=== PATIENT | male | born 1940 | race Caucasian/White ===

== ENCOUNTER → 2021-01-31 14:57 | Outpatient (BNVA) | payer MEDICARE, SELFPAY | PROVIDERS: PCP Nurse Practitioner Family; Referring Provider Nurse Practitioner Family; Visit Provider Orthopaedic Surgery | DX: M65.342 Trigger finger, left ring finger (principal); M18.12 Unilateral primary osteoarthritis of first carpometacarpal joint, left hand; M25.532 Pain in left wrist | CPT/HCPCS: 73110; 73130 ==

== ENCOUNTER 2021-03-23 13:14 | Emergency (ER) | payer MEDICARE, SELFPAY ==
[2021-03-23 14:08] VITALS: BP 130/74; PULSE 85; RESP 18; TEMP 37.2; O2SAT 96; BMI 42.4
[2021-03-23 17:14] VITALS: BP 142/85; PULSE 80; RESP 15; O2SAT 97
--- NOTE | 2021-03-23 17:14 | PC.NURSE ---
PT ARRIVED TO ROOM.
[2021-03-23 17:47] LABS: Basophils % 0.3 %; Eosinophils # 0.1 10^3/uL (0.0-0.8); Eosinophils % 0.6 %; Hematocrit 41.3 % (42.0-52.0); Hemoglobin 13.5 g/dL (11.7-16.6); Mean Corpuscular HGB Conc 32.7 g/dL (30.0-36.0); Mean Corpuscular Volume 88.6 fL (80-94); Monocytes # 1.2 10^3/uL (0.2-0.9); Monocytes % 8.1 %; Neutrophils # 10.84 10^3/uL (1.8-7.7); Neutrophils % 76.2 %; Nucleated Red Blood Cells % 0 %; Platelet Count 277 10^3/cmm (130-400); Red Blood Count 4.66 10^6/uL (4.1-5.3); Red Cell Distribution Width 14.2 % (12.1-15.1); White Blood Count 14.2 10^3/uL (4.0-10.0)
[2021-03-23 18:02] LABS: Add Urine Microscopic? YES; Bilirubin Urine Neg (Negative); Blood Urine 2+ (Negative); Glucose Urine UA 4+ (Normal); Ketones Urine Negative (Negative); Leukocyte Esterase Urine 2+ (Negative); Nitrate Urine Negative (Negative); Protein Urine Neg (Negative); Specific Gravity, Urine 1.015 (1.005-1.030); Urine Appearance SL Hazy (CLEAR); Urine Color Yellow (Yellow); Urobilinogen Urine Norm (Negative); pH Urine 5 (5-7)
[2021-03-23 18:03] LABS: Add Urine Culture? No; Bacteria Urine 2+ /hpf; Squamous Epithelial Cell Urine 25-40 /hpf (0-5); WBC Urine 15-25 /hpf (0-5)
[2021-03-23 18:22] LABS: Alanine Aminotransferase 7 U/L (0-41); Alkaline Phosphatase 111 IU/L (40-130); Anion Gap 17.1 (5-19); Aspartate Amino Transferase 9 U/L (0-40); Blood Urea Nitrogen 27 mg/dL (8-23); Calcium 9.1 mg/dL (8.5-10.5); Carbon Dioxide 26 mmol/L (22-29); Chloride 93 mmol/L (98-107); Glucose 188 mg/dL (65-115); Lipase 89 U/L (13-60); Osmolality Calculated 284 mOsm/kg (285-295); Potassium 4.1 mmol/L (3.5-5.1); Sodium 132 mmol/L (136-145); Total Bilirubin 0.3 mg/dL (0.15-1.2)
--- NOTE | 2021-03-23 18:34 | CTR_ITS ---
PROCEDURE INFORMATION: Exam: CT Abdomen And Pelvis With Contrast Exam date and time: 03/23/2021 6:34 PM Age: 80 years old Clinical indication: Abdominal pain; Generalized; Additional info: Abd pain TECHNIQUE: Imaging protocol: Computed tomography of the abdomen and pelvis with contrast. Total images: 261 Radiation optimization: All CT scans at this facility use at least one of these dose optimization techniques: automated exposure control; mA and/or kV adjustment per patient size (includes targeted exams where dose is matched to clinical indication); or iterative reconstruction. Contrast material: OMNI 300; Contrast volume: 95 ml; Contrast route: INTRAVENOUS (IV); COMPARISON: No relevant prior studies available. RADIATION DOSE METRICS: Total DLP (mGy-cm): 1733.63 FINDINGS: Lungs: Limited assessment of the lung bases fails to reveal evidence for active cardiopulmonary process. Heart: Cardiomegaly. Liver: No visible hepatic mass or cystic structure. Hepatomegaly. Gallbladder and bile ducts: Unremarkable. No calcified stones. No ductal dilation. Pancreas: Pancreas is unremarkable. No visible pancreatic ductal ectasia. Spleen: Spleen unremarkable. Adrenal glands: Small right adrenal myelolipoma measuring 24 mm in diameter. No follow-up recommended. Left adrenal gland unremarkable. Kidneys and ureters: No hydronephrosis or perinephric fluid. No visible nephrolithiasis or ureterolithiasis bilaterally. Stomach and bowel: Duodenitis with a suspected 2nd portion duodenal ulcer. No evidence for perforated ulcer at time of evaluation. No visible extraluminal gas. Diffuse mucosal thickening of the 1st, 2nd, and 3rd portions of the duodenum. Nonobstructive bowel pattern. No evidence for associated significant adynamic or reactive ileus. No visible evidence for significant diverticulosis coli or findings of acute diverticulitis. Appendix: The appendix is visualized and appears noninflamed. Intraperitoneal space: No visible pneumoperitoneum or intraperitoneal ascites. Vasculature: Portal vein patent. The abdominal aorta is nonaneurysmal. Moderate arterial sclerotic disease. Lymph nodes: No current visible evidence of active mesenteric or retroperitoneal lymphadenopathy. Urinary bladder: Urinary bladder unremarkable. Reproductive: Prostate hypertrophy. Bones/joints: No visible active or acute osseous pathology. Degenerative disease and degenerative disc disease of the spine not inconsistent with the patient's chronological age. Facet arthrosis. Soft tissues: Bilateral small inguinal hernias containing fat only. Small periumbilical ventral hernia containing fat only. Other findings: Obesity. CT/CT abdomen pelvis w con* [id number] IMPRESSION: 1. Duodenitis with a suspected 2nd portion duodenal ulcer. No evidence for perforated ulcer at time of evaluation. No visible extraluminal gas. Diffuse mucosal thickening of the 1st, 2nd, and 3rd portions of the duodenum. 2. Small right adrenal myelolipoma. No follow-up recommended. 3. Hepatomegaly. 4. Other nonurgent, nonemergent, chronic, and age related findings as detailed in text above. Radiation Dose CTDIVOL = (mGy): DLP = 1733.63 (mGy-cm)
[2021-03-23] MEDS: iohexol 300 mg/mL 100 mL Btl IV (19:14)
--- NOTE | 2021-03-23 21:21 | ED_ITS ---
HPI - Abdominal Pain General: Chief Complaint: Abdominal Pain Stated Complaint: abd pain and pressure Time Seen by Provider: 03/23/21 17:07 History of Present Illness: HPI narrative: The patient is a 80-year-old male with past medical history diabetes and hypertension who comes to the ER complaining of epigastric abdominal plain since Saturday. He says he has been taking Pepto-Bismol at home which has made his stools dark-colored and made him constipated as well. Associated Symptoms: Reports constipation; Denies diarrhea, nausea and vomiting Review of Systems General: Reports: 10 or more systems reviewed and unremarkable except in HPI and below Const: Denies: fatigue Eyes: Denies: change in vision, blurry vision or eye redness ENMT: Denies: throat pain, swelling of lips/tongue, ear or mastoid pain or nasal congestion Card: Denies: chest pain, palpitations, irregular heart rhythm, edema, dyspnea on exertion or orthopnea Resp: Denies: dyspnea, productive cough or non-productive cough GI: Reports: abdominal pain and constipation; Denies: nausea, vomiting or diarrhea : Denies: flank pain, urinary frequency or urinary urgency Musc: Denies: neck pain, back pain, extremity pain, joint pain, joint redness, limited range of motion or muscle weakness Skin/Breast: Denies: rash, pruritus, erythema, skin pain or skin tenderness Neuro: Denies: headache(s), numbness in extremities, weakness in extremities, sensory changes, difficulty walking, dizziness, confusion or Slurred speech present Psych: Denies: anxiety or depression Endo: Denies: polyuria All/Imm: Denies: urticaria, throat swelling or tongue swelling PFS ED PFSH: Social History Smoking and tobacco status: never smoked Alcohol intake: never Physical Exam Const: COMMON NORMALS: no acute distress, average body habitus, patient orient ed x3, no limitations, healthy appearing, alert and well nourished GENERAL APPEARANCE: cooperative, comfortable, well kempt and well developed ORIENTATION/CONSCIOUSNESS: Yes awake, Yes oriented to person, Yes oriented to place and Yes oriented to time HENMT: COMMON NORMALS: normocephalic, external ears normal and Normal external nose present HEAD & SCALP: normal to inspection and normocephalic NOSE: Normal external nose present EXTERNAL EAR: Yes external ears normal MOUTH: Normal oral and palatal mucosa present THROAT: posterior oropharynx normal Eye: COMMON NORMALS: Equal, round and reactive pupils present and EOMs intact bilaterally GENERAL EYE: appearance normal, both eyes and all related structures PUPIL: Yes Equal, round and reactive pupils present Neck/C-Spine: COMMON NORMALS: full ROM, no lymphadenopathy, no meningeal signs and no JVD GENERAL: Yes normal visual inspection Lymph: LYMPHATIC: no lymphadenopathy noted Chest: COMMONS NORMALS: normal inspection of the chest and normal palpation of entire chest wall Resp: COMMON NORMALS: normal respiratory effort, No retractions, No use of accessory muscles, clear to auscultation bilaterally and percussion normal EFFORT & INSPECTION: Yes able to speak in complete sentences AUSCULTATION: clear to auscultation bilaterally PERCUSSION: percussion normal Cardio: COMMON NORMALS: no JVD, regular rate, regular rhythm, S1 normal heart sound present, S2 normal heart sound present and Peripheral pulses 2+ throughout RATE: regular rate RHYTHM: regular rhythm HEART SOUNDS: S1 normal heart sound present and S2 normal heart sound present PERIPHERAL PULSES: Peripheral pulses 2+ throughout GI: COMMON NORMALS: Normal to inspection, nondistended, normoactive bowel sounds present, Soft to palpation and no masses INSPECTION: Yes normal to inspection PALPATION: Yes Soft to palpation GI image (male): 1. mild epigastric tenderness. : COMMON NORMALS: Yes no CVA tenderness BLADDER/KIDNEY EXAM: Yes no CVA tenderness Back/Pelvis: COMMON NORMALS: no CVA tenderness, thoracic and lumbar spine normal to inspection, no thoracic nor lumbar tenderness and thoraco-lumbar ROM normal Extremity: COMMON NORMALS: normal to inspection, full ROM, capillary refill normal, no joint enlargement and no pedal edema GENERAL: Yes normal exam except as noted Neuro: COMMON NORMALS: patient oriented x3, CN's II-XII intact bilaterally, moves all extremities, no focal motor deficits, no sensory deficits noted and gait normal SENSORIUM/ORIENTATION: Yes alert, Yes oriented to person, Yes oriented to place and Yes oriented to time MENINGEAL SIGNS: Yes no meningeal signs Psych: COMMON NORMALS: mental status grossly normal, Normal thought process present, cooperative, normal affect and speech normal APPEARANCE: Yes well ke mpt ATTITUDE: Yes calm SPEECH: Yes normal speech THOUGHT PROCESS: Mendy l thought process present Skin: COMMON NORMALS: no rashes or lesions noted GENERAL SKIN EXAM: no rashes or lesions noted Course Vital Signs: Vital signs: Vital Signs Temperature 98.9 F 03/23/21 14:08 Pulse Rate 90 03/23/21 22:03 Respiratory Rate 16 03/23/21 22:03 Blood Pressure 149/80 03/23/21 22:03 Pulse Oximetry 96 03/23/21 22:03 MDM - Abdominal Pain MDM Narrative: Medical decision making narrative: Patient came in complaining of mild epigastric pain and he has been eating spicy food approximately 5 days ago and has continued pain. He has been taking Pepto-Bismol at home with no significant improvement but it has turned his stools dark. CT shows duodenitis with likely ulceration. He was started on Protonix and given a GI cocktail with some improvement of his symptoms here in the ED. Discussed with Dr. Flores recommended following up with him in the outpatient clinic. Discharged him with Protonix and Carafate. Called him by phone after he was discharged as he possibly has a UTI as well and called in ciprofloxacin to the [facility] 500 mg p.o. twice daily for 7 days. He will return to the ER with worsening symptoms as I coached him in great detail about the possibility of perforation and to return with worsening symptoms. Lab Data: Labs: Lab Results 03/23/21 03/23/21 03/23/21 Range/Units 17:35 17:35 17:38 WBC 14.2 H (4.0-10.0) 10^3/ uL RBC 4.66 (4.1-5.3) 10^6/u L Hgb 13.5 (11.7-16.6) g/dL Hct 41.3 L (42.0-52.0) % MCV 88.6 (80-94) fL MCH 29.0 (28.0-34.0) pg MCHC 32.7 (30.0-36.0) g/dL RDW 14.2 (12.1-15.1) % Plt Count 277 (130-400) 10^3/c mm MPV 10.0 (7.4-10.4) fL Neut % (Auto) 76.2 % Lymph % (Auto) 14.0 % Liberty % (Auto) 8.1 % Eos % (Auto) 0.6 % Baso % (Auto) 0.3 % Neut # (Auto) 10.84 H (1.8-7.7) 10^3/u L Lymph # (Auto) 2.0 (0.8-4.8) 10^3/u L Liberty # (Auto) 1.2 H (0.2-0.9) 10^3/u L Eos # (Auto) 0.1 (0.0-0.8) 10^3/u L Baso # (Auto) 0.0 (0.0-0.1) 10^3/u L Nucleated RBC % (a uto) 0 % Nucleated RBCs # 0.0 /100WBC Sodium 132 L (136-145) mmol/L Potassium 4.1 (3.5-5.1) mmol/L Chloride 93 L (98-107) mmol/L Carbon Dioxide 26 (22-29) mmol/L Anion Gap 17.1 (5-19) BUN 27 H (8-23) mg/dL Creatinine 0.9 (0.7-1.2) mg/dL GFR Calculation Not Reportable Glucose 188 H (65-115) mg/dL Calculated Osmolal ity 284 L (285-295) mOsm/k g Calcium 9.1 (8.5-10.5) mg/dL Total Bilirubin 0.3 (0.15-1.2) mg/dL AST 9 (0-40) U/L ALT 7 (0-41) U/L Alkaline Phosphata se 111 (40-130) IU/L Total Protein 7.0 (6.6-8.7) g/dL Albumin 4.0 (3.5-5.2) g/dL Globulin 3.0 (1.3-4.6) g/dL Lipase 89 H (13-60) U/L Urine Color Yellow (Yellow) Urine Appearance Sl hazy (CLEAR) Urine pH 5 (5-7) Ur Specific Gravit y 1.015 (1.005-1.030) Urine Protein Neg (Negative) Urine Glucose (UA) 4+ H (Normal) Urine Ketones Negative (Negative) Urine Blood 2+ H (Negative) Urine Nitrate Negative (Negative) Urine Bilirubin Neg (Negative) Urine Urobilinogen Norm (Negative) mg/dL Ur Leukocyte Krista ase 2+ H (Negative) Urine RBC 5-10 H (0-2) /hpf Urine WBC 15-25 H (0-5) /hpf Ur Squamous Epith Cells 25-40 H (0-5) /hpf Amorphous Sediment Not Reportable Urine Bacteria 2+ H (NONE) /hpf Discharge Plan Discharge Patient Disposition: Home Clinical Impression: Duodenal ulcer Condition: Stable Prescriptions: New Protonix 40 mg tablet,delayed release (DR/EC) 40 mg PO BID 30 Days Qty: 60 RF: 0 Carafate 1 gram tablet 1 g PO Q6H 28 Days Qty: 112 RF: 0 No Action meloxicam [Mobic] 15 mg tablet 15 mg PO DAILY RF: 0 (DME) lancets [Accu-Chek Softclix Lancets] Misc See Rx Instructions .ROUTE RF: 0 omega-3 fatty acids [Fish Oil Concentrate] 1,000 mg capsule 1,000 mg PO DAILY RF: 0 simvastatin 20 mg tablet 20 mg PO DAILY RF: 0 amlodipine 5 mg tablet 5 mg PO DAILY RF: 0 metformin 1,000 mg tablet 1,000 mg PO BID RF: 0 gabapentin 600 mg tablet 600 mg PO BID RF: 0 lisinopril 20 mg tablet 20 mg PO DAILY RF: 0 Tylenol 325 mg Tablet 325 - 650 mg PO Q4H PRN (Reason: Pain) RF: 0 Pepto-Bismol 262 mg/15 mL Suspension See Rx Instructions .ROUTE .COMPLEX RF: 0 Allergy 25 mg Tablet 25 mg PO DAILY RF: 0 Discharge Orders: Discharge ED (Routine); Ordered 03/23/21 Ordered By: Mustapha Narvaez Referrals: Zoila Early [Primary Care Provider] - Discharge Diet: Advance as tolerated Discharge Activity: Resume usual activity Patient Instructions: Peptic Ulcer (ED), Opioid Safety Activity Restrictions/Additional Instructions: You have inflammation in the first part of your intestine called the duodenum and likely an ulcer there. Please avoid NSAIDs, caffeine, spicy food, smoking as these increase stomach acid. Please take the omeprazole and Carafate to help reduce the acid in your stomach and let it heal itself. I have discussed with Dr. Flores her general surgeon here who is willing to see you in his clinic and possibly do a scope depending on her symptoms at that time. Please take those medications and return to the ER with any worsening symptoms as there is a small possibility of a perforation which would make you septic and your symptoms worsen. Return to the ER at anytime with those symptoms. I have placed a case management referral to help you get an appointment with a general surgeon Dr. Flores and they should be calling you either tomorrow or Saturday to help set up this appointment. Coding Level of Care Code ED Financial Institution President for Vale Chung Exam Comprehensive
[2021-03-23] MEDS: lidocaine 2% viscous 15 ML, aluminum-mag hydrox-simethicon 30 ML, sucralfate oral liq 1 GM PO (21:22)
[2021-03-23] MEDS: pantoprazole 40 mg SDV IVP (21:22)
[2021-03-23 22:03] VITALS: BP 149/80; PULSE 90; RESP 16; O2SAT 96
--- NOTE | 2021-03-24 09:18 | DCPLANNER ---
Addendum entered by Joslyn Kennedy 03/28/21 14:40: manager of application development was contacted and told that when clinic called patient to schedule the follow up appointment that patient stated that he has already contacted his primary care physician. Original Note: manager of application development had message to schedule a follow up appointment for patient with general surgery. manager of application development emailed patients information to both Herlinda and Brittney at [facility] General Surgery. Patients information will be printed and reviewed. Clinic will call patient with appointment information.
== END 2021-03-23 22:04 | disposition home or self-care (01) ==
PROVIDERS: Family Medicine; Emergency Provider Family Medicine; PCP Nurse Practitioner Family
DX: K26.9 Duodenal ulcer, unspecified as acute or chronic, without hemorrhage or perforation (principal); Z79.84 Long term (current) use of oral hypoglycemic drugs
CPT/HCPCS: 74177; 80053; 81001; 83690; 85025; 96374; 99283; C9113; Q9967

== ENCOUNTER → 2023-10-29 13:15 | Outpatient (BNVA) | payer MEDICARE, MEDICAID, SELFPAY | PROVIDERS: PCP Nurse Practitioner Family; Visit Provider Nurse Practitioner Family | DX: E11.621 Type 2 diabetes mellitus with foot ulcer (principal); L97.509 Non-pressure chronic ulcer of other part of unspecified foot with unspecified severity | CPT/HCPCS: 87070; 87176; 87205 ==

== ENCOUNTER → 2023-11-12 15:00 | Outpatient (BNVA) | payer MEDICARE, MEDICAID, SELFPAY | PROVIDERS: PCP Nurse Practitioner Family; Visit Provider Nurse Practitioner Family | DX: E11.621 Type 2 diabetes mellitus with foot ulcer (principal); L97.509 Non-pressure chronic ulcer of other part of unspecified foot with unspecified severity | CPT/HCPCS: 87070; 87077; 87176; 87186; 87205 ==

== ENCOUNTER → 2023-11-25 14:32 | Outpatient (BNVA) | payer MEDICARE, SELFPAY | PROVIDERS: PCP Nurse Practitioner Family; Visit Provider Podiatrist Foot & Ankle Surgery | DX: E11.621 Type 2 diabetes mellitus with foot ulcer (principal); L97.522 Non-pressure chronic ulcer of other part of left foot with fat layer exposed; M86.672 Other chronic osteomyelitis, left ankle and foot; E11.40 Type 2 diabetes mellitus with diabetic neuropathy, unspecified; E11.10 Type 2 diabetes mellitus with ketoacidosis without coma; Z79.4 Long term (current) use of insulin | CPT/HCPCS: 73630; 99204 ==

== ENCOUNTER 2023-12-04 06:38 | Day surgery (SDC) | payer MEDICARE, MEDICAID, SELFPAY ==
[2023-12-04] VITALS (8 sets, daily range): BP systolic 99–120; BP diastolic 51–74; PULSE 54–69; RESP 14–17; TEMP 36.2–36.7; O2SAT 93–99; BMI 36.2
[2023-12-04] MEDS: acetaminophen 1,000 MG/100 ML PIGGYBACK 400 MG IV (07:08)
[2023-12-04] MEDS: sodium chloride 0.9% 1,000 ML 30 ML IV (07:08)
--- NOTE | 2023-12-04 07:10 | ANES.PREANE2 ---
Pre-Anesthetic Assessment Height/Weight: Height 1.65 m Preop Diagnosis: Osteomyelitis Operation Date: 12/04/23 08:15 Proposed Procedures p Amputation Toe/s/ Left hallux amputation(Left) - Lasha Gaytan DPM s Ray Resection/ possible partial first ray resection left foot(Left) - Lasha Gaytan DPM Familial anesthetic complications: None Was Beta Sindhu taken within 24 hours: N/A Was Clonidine taken within 24 hours: N/A Last intake: > 8hrs Social No alcohol and No tobacco Exam alert, oriented x 3, clear to auscultation bilaterally and regular rate & rhythm Airway Mallampati: Class IV Dentition: chipped Comments: Comments: Full cisse CV/HEM Hypertension GI Gastroesophageal Reflux Disease Metabolic Diabetes Mellitus and Hyperlipidemia Anesthetic Plan ASA status: 4 Anesthesia: MAC Risk of > 500 ml blood loss (7ml/kg in children): No Medications/Allergies Home Medications Medication Instructions Recorded Confirmed Last Taken Type amlodipine 5 mg tablet 5 mg PO DAILY 01/31/21 12/04/23 12/04/23 History gabapentin 600 mg tablet 900 mg PO BID 01/31/21 12/03/23 12/03/23 History lancets (Accu-Chek Softclix 01/31/21 12/03/23 Unknown History Lancets) simvastatin 20 mg tablet 20 mg PO DAILY 01/31/21 12/03/23 12/03/23 History acetaminophen 325 mg tablet 325 - 650 mg PO Q4H PRN Pain 03/23/21 12/03/23 03/23/21 History (Tylenol) cholecalciferol (vitamin D3) 1,250 1,250 mcg PO DAILY 10/29/23 12/03/23 12/03/23 History mcg (50,000 unit) capsule insulin glargine 100 unit/mL (3 100 unit SUBCUT DAILY 10/29/23 12/03/23 12/03/23 History mL) subcutaneous pen (Lantus Solostar U-100 Insulin) mirtazapine 30 mg tablet 30 mg PO DAILY 10/29/23 12/03/23 12/03/23 History nystatin 100,000 unit/gram topical 1 applic topical BID 10/29/23 12/03/23 Unknown History powder pantoprazole 40 mg tablet,delayed 40 mg PO DAILY 10/29/23 12/03/23 12/03/23 History release sitagliptin phosphate 100 mg 100 mg PO DAILY 10/29/23 12/03/23 12/03/23 History tablet (Januvia) tramadol 50 mg tablet 50 mg PO Q8H PRN Pain 10/29/23 12/03/23 12/03/23 History triamcinolone acetonide 0.1 % applic topical 10/29/23 12/03/23 Unknown History topical cream Allergies Allergy/AdvReac Type Severity Reaction Status Date / Time aspirin Allergy ADR-Gastrointestinal Verified 12/04/23 06:50 Upset pregabalin [From Lyrica] Allergy ALGY-Bliste Verified 12/03/23 15:00 r Current Medications Generic Name Dose Route Start Last Admin Trade Name Freq PRN Reason Stop Dose Admin Sodium Chloride 1,000 mls @ 30 mls/hr 12/04/23 06:45 12/04/23 07:08 Sodium Chloride 0.9% IV 12/05/23 06:44 30 mls/hr .Q24H KIERSTEN Administration PFSH Anesthesia Medical History (Updated 11/30/23 @ 20:34 by Lasha Gaytan DPM) Diabetic acidosis, type II Pyelonephritis Hyperlipidemia 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
[2023-12-04 07:45] LABS: Glucose Point of Care 106 mg/dL (70-110)
--- NOTE | 2023-12-04 07:46 | ECG_ITS ---
[facility] Test Date: 2023-12-04 Pat Name: Lázaro Polo Department: Room: Gender: Male Web Marketing Analyst: : 1940 Requested By: Samantha Ray Order Number: [id number] Monica MD: Glen Love M.D. Measurements Intervals Tiff Rate: 61 P: 41 GA: 202 QRS: -58 QRSD: 149 T: 3 QT: 440 QTc: 446 Interpretive Statements SINUS RHYTHM WITH OCCASIONAL SUPRAVENTRICULAR PREMATURE COMPLEXES RIGHT BUNDLE BRANCH BLOCK [120+ ms QRS DURATION, UPRIGHT V1, 40+ ms S IN I/aVL/V4/V5/V6] LEFT ANTERIOR FASCICULAR BLOCK [QRS AXIS <= -45, QR IN I, RS IN II] Compared to ECG 08/23/2016 10:54:37 Right bundle-branch block now present Myocardial infarct finding no longer present Electronically Signed On 12-04-2023 16:59:31 CDT by Glen Love M.D. [id number]
[2023-12-04 07:48] LABS: Anion Gap 14.3 (5-19); Blood Urea Nitrogen 11 mg/dL (8-23); Calcium 9.2 mg/dL (8.5-10.5); Carbon Dioxide 27 mmol/L (22-29); Chloride 103 mmol/L (98-107); Creatinine Clr Calc Pharmacy 78.3114; Glucose 107 mg/dL (65-115); Osmolality Calculated 290 mOsm/kg (285-295); Potassium 4.3 mmol/L (3.5-5.1); Sodium 140 mmol/L (136-145)
--- NOTE | 2023-12-04 07:56 | W.PM.OPSUD ---
Surgery/Procedure H&P Update DATE OF PROCEDURE: December 04, 2023 DATE H&P PERFORMED: 11/25/23 H&P UPDATE INFORMATION: I have reviewed H&P completed within last 30 days, I have examined patient prior to procedure, No changes to prior documentation and H&P is in [facility] EMR on date indicated PREOP DIAGNOSIS: Osteomyelitis PLANNED PROCEDURE: Operation Date: 12/04/23 08:15 Proposed Procedures p Amputation Toe/s/ Left hallux amputation(Left) - Lasha Gaytan DPM s Ray Resection/ possible partial first ray resection left foot(Left) - Lasha Gaytan DPM
[2023-12-04] MEDS: ceFAZolin 2,000 MG in sodium chloride 0.9% (plus) 50 ML 100 MG IV (08:01)
[2023-12-04] MEDS: BUPivacaine 0.5% INJ 30 mL XX (08:15)
--- NOTE | 2023-12-04 08:38 | P.BOP_ITS ---
Date of procedure: 12/04/2023 Surgeon name: Dr. Lasha Gaytan D.P.M. Candy Department Manager(s) name(s): Guilherme Procedure(s) performed: Left foot hallux amputation Description of findings: Osteomyelitis left hallux Estimated blood loss: 5 cc Tourniquet time: 15 minutes Specimen(s) removed: Left hallux Post-operative diagnosis: Osteomyelitis left hallux
--- NOTE | 2023-12-04 08:40 | PM.OP ---
Operative Report Date of procedure: December 04, 2023 Pre-op diagnosis: Osteomyelitis left hallux Post-op diagnosis: Same Post-op findings: Osteomyelitis of left proximal phalanx Procedure done: Left hallux amputation CPT 18819 Pathology: Left hallux as surgical specimen Surgeon: Lasha Gaytan DPM Hydraulic Lift Driver: Guilherme Estimated blood loss: 5 cc 15 minutes Complications: None Findings: See above Procedure: Patient is a 83-year-old male that has a history of left hallux osteomyelitis with chronic ulceration. The patient has had the aforementioned chief complaint for some time. Conservative treatment measures have been attempted and the patient has opted for surgical intervention at this time. A lengthy discussion regarding the procedure, including risks and complications has been had with the patient and is noted in the recent clinic note. Written and verbal consent have been obtained. All patient questions have been answered to the patient?s satisfaction. No written or verbal guarantees have been given or implied. The patient has been NPO since midnight. The history has been reviewed and the history and physical is current. The signed consent was confirmed and placed in the patient chart. Patient imaging has been reviewed and is consistent with the diagnosis. Under mild sedation, the patient was brought into the operating room and placed on the table in the supine position. IV antibiotics were given by the anesthesia team as preoperative surgical prophylaxis. IV sedation was then performed by the anesthesiateam. A local field block was then performed using 0.5% Marcaine plain. A pneumatic tourniquet was then placed about the left ankle. The operative extremity was then prepped and draped in the usual fashion. The extremity was then elevated before the tourniquet was inflated to 250 mmHg. After inflation, the following procedure was then performed. Attention was directed to the left hallux where a racquet style incision was made circumferentially about the hallux with care to preserve as much soft tissue as possible. Dissection was carried full-thickness down to level of bone. Dissection was carried out to the level of the first metatarsophalangeal joint. The collateral ligaments and attachments of the first metatarsal phalangeal joint capsule were excised. A penetrating towel clamp was then used to grasp the end of the hallux to joystick the hallux for amputation. All connections of the first metatarsophalangeal joint were released using a #15 blade. The hallux was then passed from the operative field be sent as specimen. The remaining tissues appeared healthy and viable in nature. The metatarsal head appeared healthy without any degenerative changes. The flexor and extensor tendons were then grasped and pulled distally before being incised as proximally as possible using a #15 blade. All remaining tissue appeared healthy. The site was then irrigated with copious amounts of sterile saline via cystoscopy tubing. The amputation site was then closed using 3-0 Prolene in simple interrupted, horizontal mattress and retention type fashion. The tourniquet was let down and good hyperemic response was noted to all remaining digits of the operative extremity. The incision site was then dressed with Xeroform, 4 x 4 gauze, Kerlix, Coban. The patient tolerated the procedure and anesthesia well and without complication. The patient was transported from the operating room to the recovery room with vital signs stable and vascular status intact to all remaining digits of the left foot. The patient was given both written and verbal instructions to remain weightbearing as tolerated in postop shoe to the operative extremity, to keep dressings/splint clean, dry and intact and to take pain medication as directed. The patient will follow-up in the outpatient setting at their scheduled appointment. The patient was discharged with my personal number and was instructed to call if any questions or issues should arise. They were discharged home once anesthesia criteria was met.
--- NOTE | 2023-12-04 09:40 | ANE.PACU2 ---
Inpatient post-anesthesia follow up: Airway intact: Yes Vital signs: Temperature 97.9 F Pulse Rate 54 Respiratory Rate 16 Blood Pressure 108/53 Pulse Oximetry 94 Oxygen Delivery Me thod Room Air Oxygen Flow Rate 6 Fraction of Inspir ed Oxygen Hydration adequate: Yes Nausea and vomiting: No Pain level: 1 Mental status: Baseline
== END 2023-12-04 09:40 | disposition home or self-care (01) ==
PROVIDERS: Anesthesiology; Family Provider Family Medicine; PCP Nurse Practitioner Family; Visit Provider Podiatrist Foot & Ankle Surgery
PROC: (CPT 28820; principal; 2023-12-04 07:55)
PROC: (CPT 28810; 2023-12-04 07:55)
DX: M86.8X7 Other osteomyelitis, ankle and foot (principal); I10 Essential (primary) hypertension; K21.9 Gastro-esophageal reflux disease without esophagitis; E78.5 Hyperlipidemia, unspecified; Z79.4 Long term (current) use of insulin; E11.69 Type 2 diabetes mellitus with other specified complication; E66.9 Obesity, unspecified; Z68.36 Body mass index [BMI] 36.0-36.9, adult
CPT/HCPCS: 28820; 36416; 80048; 82962; 88305; 88311; 93005; J0131; J0690; J2704; J3010; J3490; J7030

== ENCOUNTER → 2023-12-11 12:34 | Outpatient (BNVA) | payer MEDICARE, MEDICAID, SELFPAY | PROVIDERS: Family Provider Family Medicine; PCP Nurse Practitioner Family; Visit Provider Podiatrist Foot & Ankle Surgery | DX: M86.8X7 Other osteomyelitis, ankle and foot (principal); Z89.412 Acquired absence of left great toe; E11.40 Type 2 diabetes mellitus with diabetic neuropathy, unspecified; E11.10 Type 2 diabetes mellitus with ketoacidosis without coma; Z79.4 Long term (current) use of insulin | CPT/HCPCS: 99213; A6219; A6222 ==

== ENCOUNTER → 2023-12-18 13:42 | Outpatient (BNVA) | payer MEDICARE, MEDICAID, SELFPAY | PROVIDERS: Family Provider Family Medicine; PCP Nurse Practitioner Family; Visit Provider Podiatrist Foot & Ankle Surgery | DX: Z98.890 Other specified postprocedural states (principal); E11.40 Type 2 diabetes mellitus with diabetic neuropathy, unspecified; E11.10 Type 2 diabetes mellitus with ketoacidosis without coma; M86.8X7 Other osteomyelitis, ankle and foot; Z79.4 Long term (current) use of insulin; Z89.412 Acquired absence of left great toe | CPT/HCPCS: 99213 ==

== ENCOUNTER → 2024-03-05 09:15 | Outpatient (BNVA) | payer MEDICARE, MEDICAID, SELFPAY | PROVIDERS: Family Provider Family Medicine; PCP Nurse Practitioner Family; Visit Provider Podiatrist Foot & Ankle Surgery | DX: Z98.890 Other specified postprocedural states (principal); E11.621 Type 2 diabetes mellitus with foot ulcer; M86.9 Osteomyelitis, unspecified; E11.40 Type 2 diabetes mellitus with diabetic neuropathy, unspecified; E11.10 Type 2 diabetes mellitus with ketoacidosis without coma; L97.522 Non-pressure chronic ulcer of other part of left foot with fat layer exposed; Z89.412 Acquired absence of left great toe; Z79.4 Long term (current) use of insulin | CPT/HCPCS: 11720; 99213 ==

== ENCOUNTER 2024-05-29 15:40 | Outpatient (CLI) | payer MEDICARE, MEDICAID, SELFPAY ==
[2024-05-29 16:46] LABS: Bilirubin Urine Neg (Negative); Blood Urine 2+ (Negative); Glucose Urine UA 2+ (Normal); Ketones Urine Negative (Negative); Nitrate Urine Negative (Negative); Protein Urine 1+ (Negative); Urine Appearance Cloudy (CLEAR); Urine Color Yellow (Yellow); Urobilinogen Urine 4 mg/dL (Negative); pH Urine 7 (5-7)
[2024-05-29 16:47] LABS: Add Urine Microscopic? YES; Leukocyte Esterase Urine 2+ (Negative)
[2024-05-29 16:48] LABS: Bacteria Urine 4+ /hpf; Mucus Urine TRACE /hpf; Squamous Epithelial Cell Urine 0-4 /hpf (0-5); WBC Urine 80-100 /hpf (0-5)
[2024-05-29 16:49] LABS: Add Urine Culture? Yes
== END 2024-05-29 15:41 | disposition home or self-care (01) ==
LOC: LAB 15:42
PROVIDERS: Family Provider Family Medicine; PCP Nurse Practitioner Family; Visit Provider Family Medicine
DX: Z87.440 Personal history of urinary (tract) infections (principal); Z46.6 Encounter for fitting and adjustment of urinary device
CPT/HCPCS: 81001; 87077; 87086; 87186

== ENCOUNTER 2025-04-13 16:19 | Outpatient (CLI) | payer MEDICARE, SELFPAY ==
[2025-04-13 16:51] LABS: Glucose Urine UA 1+ (Normal); Nitrate Urine Positive (Negative); Specific Gravity, Urine 1.026 (1.005-1.030)
[2025-04-13 16:58] LABS: Add Urine Microscopic? YES
[2025-04-13 18:07] LABS: UA Slide Review UA Slide Review Perf
== END 2025-04-13 16:20 | disposition home or self-care (01) ==
LOC: LAB 16:27
PROVIDERS: Family Provider Family Medicine; PCP Nurse Practitioner Family; Visit Provider Family Medicine
DX: Z46.6 Encounter for fitting and adjustment of urinary device (principal)
CPT/HCPCS: 81001; 87077; 87086; 87186